=== PATIENT | female | born 2000 | race Caucasian/White ===

== ENCOUNTER 2019-12-05 15:00 | Emergency (ER) | payer SELFPAY ==
[2019-12-05 15:18] VITALS: BP 122/85; PULSE 78; RESP 18; TEMP 36.8; O2SAT 98; BMI 32.5
--- NOTE | 2019-12-05 15:49 | ED_ITS ---
HPI - General: Chief complaint: OB/Uterine Contractions Stated complaint: bleeding and preg Time Seen by Provider: 12/05/19 15:29 History of Present Illness: HPI Narrative: 19-year-old female presents emergency room complaining of vaginal bleeding. She is presumed to be a G3, P2 SAB at 0 based on her recent home test states her last normal menstrual period was October 2016 she states that yesterday and the day prior she had positive test but now is having some small amount of vaginal bleeding. Based on her stated LMP she would be 3 weeks and 3 days gestation today. She denies any dysuria urgency or frequency she is not passed any tissue. MD Complaint: vaginal bleeding Onset (ago): day(s) (1) Pain Consistency: intermittent Severity: mild Quality: Cramping Relieving factors: none Exacerbating factors: none Vaginal discharge: none Vaginal bleeding: light Date of Last Menstrual Period: 11/11/19 Hx Last Menstrual Period: Normal per patient Patient : Yes Expected Date of Delivery: 08/17/20 Number of Weeks : 3 weeks 3 days OB History - Previous Pregnancies: no complications care: none Associated symptoms: Deny abdominal pain, dysuria, malaise, nausea or vomiting Review of Systems Const: Denies: fever(s), chills, body aches, change in appetite, fatigue or malaise ENMT: Denies: throat pain, ear or mastoid pain, nasal discharge or nasal co ngestion Card: Denies: chest pain, edema, dyspnea on exertion or orthopnea Resp: Denies: dyspnea, productive cough or non-productive cough GI: Denies: abdominal pain, nausea, vomiting, hematemesis, coffee ground emesis, diarrhea, constipation, bloating, hematochezia or melena : Denies: flank pain, difficulty voiding, dysuria, urinary frequency or urinary urgency Skin/Breast: Denies: rash or pruritus PFSH ED PFSH: Medical History No significant past medical history Surgical History No history of previous surgery Social History Smoking and tobacco status: never smoked Female Reproductive History: Date of last menstrual period: 11/11/19 Physical Exam Const: COMMON NORMALS: no acute distress GENERAL APPEARANCE: cooperative and comfortable ORIENTATION/CONSCIOUSNESS: Yes awake, Yes oriented to person, Yes oriented to place and Yes oriented to time Neck/C-Spine: COMMON NORMALS: no JVD Resp: COMMON NORMALS: normal respiratory effort, No retractions, No use of accessory muscles and clear to auscultation bilaterally AUSCULTATION: clear to auscultation bilaterally Cardio: COMMON NORMALS: no JVD, regular rate, regular rhythm and No murmurs present (Cardio) RATE: regular rate RHYTHM: regular rhythm GI: COMMON NORMALS: Soft to palpation and No hepatosplenomegaly present AUSCULTATION: Yes normoactive bowel sounds PALPATION: Yes Soft to palpation, No Tenderness to palpation present (GI), No Guarding due to palpation present (GI) and Yes No hepatosplenomegaly present Extremity: COMMON NORMALS: normal to inspection, capillary refill normal, no clubbing, cyanosis or edema, no calf tenderness and no pedal edema Neuro: SENSORIUM/ORIENTATION: Yes oriented to person, Yes oriented to place and Yes oriented to time Skin: COMMON NORMALS: no rashes or lesions noted GENERAL SKIN EXAM: no rashes or lesions noted Procedures Perimortem Number of Weeks : 3 weeks 3 days Course Vital Signs: Vital signs: Vital Signs Temperature 98.3 F 12/05/19 15:18 Pulse Rate 78 12/05/19 15:18 Respiratory Rate 18 12/05/19 15:18 Blood Pressure 122/85 12/05/19 15:18 Pulse Oximetry 98 12/05/19 15:18 MDM - OB/Uterine Contractions MDM Narrative: Medical decision making narrative: Patient refused blood draws because she was afraid of the needle we tried to discourage her discussed with her that we cannot adequately evaluate her without a blood draw she did not want to do that she eventually decided to leave A she is welcome to return at any time. If she starts having heavy bleeding she does run the risk of having further complications she understands this. Discharge Plan Discharge Patient Disposition: Left Against Medical Advice Prescriptions: No Action No Known Home Medications RF: 0 Discharge Date/Time: 12/05/19 17:00 Coding Level of Care Code ED [employer] for Chg Fwd Exam Detailed
== END 2019-12-05 17:00 | disposition left against medical advice (07) ==
PROVIDERS: Emergency Provider Family Medicine
DX: N93.9 Abnormal uterine and vaginal bleeding, unspecified (principal); Z53.21 Procedure and treatment not carried out due to patient leaving prior to being seen by health care provider
CPT/HCPCS: 12345; 99281

== ENCOUNTER 2022-08-10 15:18 | Outpatient (CLI) | payer MEDICAID, SELFPAY ==
--- NOTE | 2022-08-10 15:30 | US_ITS ---
WS: [id number] RIGHT 3D TOMOSYNTHESIS DIGITAL MAMMOGRAPHY WITH CAD CLINICAL INFORMATION: PALPABLE LUMP RIGHT TECHNIQUE: 3 views of the right breast were obtained. FINDINGS: Scattered fibroglandular densities of the right breast. Palpable marker upper outer RIGHT breast demo nstrates normal underlying parenchymal tissue. Normal fatty tissue in the area of palpable concern. U ltrasound described below. ULTRASOUND BREAST RIGHT TECHNIQUE: Ultrasound right breast focused area of concern. CLINICAL INFORMATION: PALPABLE LUMP RIGHT FINDINGS: Ultrasound RIGHT breast 10:00 position 5 cm from the nipple patient directed. Suggestion of a Hypoech oic ovoid elongated lesion in the area of palpable concern measuring 1.2 x 1.7 x 0.7 CM. This may rep resent a benign lipoma, incidental fibroadenolipoma, or normal asymmetric parenchyma tissue. No abnor malities noted on the mammogram in the area of palpable concern. Normal fatty tissue deep to the palp able marker. Findings are probably benign and recommend 6 month follow-up ultrasound to confirm stab ility. US/US breast RT limited* [id number] IMPRESSION: BI-RADS: 3-Probably Benign FOLLOW UP: 6 Month Follow-up Recommend 6 month follow-up RIGHT breast ultrasound to confirm stability.
--- NOTE | 2022-08-10 15:51 | MM_ITS ---
WS: [id number] RIGHT 3D TOMOSYNTHESIS DIGITAL MAMMOGRAPHY WITH CAD CLINICAL INFORMATION: PALPABLE LUMP RIGHT TECHNIQUE: 3 views of the right breast were obtained. FINDINGS: Scattered fibroglandular densities of the right breast. Palpable marker upper outer RIGHT breast demo nstrates normal underlying parenchymal tissue. Normal fatty tissue in the area of palpable concern. U ltrasound described below. ULTRASOUND BREAST RIGHT TECHNIQUE: Ultrasound right breast focused area of concern. CLINICAL INFORMATION: PALPABLE LUMP RIGHT FINDINGS: Ultrasound RIGHT breast 10:00 position 5 cm from the nipple patient directed. Suggestion of a Hypoech oic ovoid elongated lesion in the area of palpable concern measuring 1.2 x 1.7 x 0.7 CM. This may rep resent a benign lipoma, incidental fibroadenolipoma, or normal asymmetric parenchyma tissue. No abnor malities noted on the mammogram in the area of palpable concern. Normal fatty tissue deep to the palp able marker. Findings are probably benign and recommend 6 month follow-up ultrasound to confirm stab ility. MM/[place] [id number] IMPRESSION: BI-RADS: 3-Probably Benign FOLLOW UP: 6 Month Follow-up Recommend 6 month follow-up RIGHT breast ultrasound to confirm stability.
== END 2022-08-10 15:19 | disposition home or self-care (01) ==
PROVIDERS: PCP Family Medicine; Visit Provider Family Medicine
DX: N63.11 Unspecified lump in the right breast, upper outer quadrant (principal)
CPT/HCPCS: 76642; 77061; G0279

== ENCOUNTER 2023-05-02 19:44 | Outpatient (CLI) | payer MEDICAID, SELFPAY ==
[2023-05-02 19:49] VITALS: BP 129/78; PULSE 87
[2023-05-02 20:09] VITALS: BP 118/71; PULSE 85
[2023-05-02 20:24] VITALS: BP 113/66; PULSE 86
[2023-05-02 20:29] VITALS: RESP 15
[2023-05-02 20:39] VITALS: BP 110/65; PULSE 86
[2023-05-02 20:54] VITALS: BP 110/64; PULSE 88
[2023-05-02 21:20] LABS: Amphetamines Screen Urine Negative (Negative); Barbiturates Screen Urine Negative (Negative); Benzodiazepines Screen Urine Negative (Negative); Cocaine Screen Urine Negative (Negative); Opiate Screen Urine Negative (Negative); PCP Screen Urine Negative (Negative); THC Screen Urine Negative (Negative)
== END 2023-05-02 21:05 | disposition home or self-care (01) ==
LOC: OPOB 19:45 → OBGYN 19:48
PROVIDERS: PCP Family Medicine; Visit Provider Obstetrics & Gynecology
DX: O36.8190 Decreased fetal movements, unspecified trimester, not applicable or unspecified (principal); Z3A.00 Weeks of gestation of pregnancy not specified
CPT/HCPCS: 59025; 80306; 87081; 99211

== ENCOUNTER 2023-05-08 15:50 | Outpatient (CLI) | payer MEDICAID, SELFPAY ==
[2023-05-08 15:50] VITALS: BMI 35.9
[2023-05-08 16:00] VITALS: TEMP 35.9
[2023-05-08 16:01] VITALS: BP 117/77; PULSE 110
[2023-05-08 16:16] VITALS: RESP 15; TEMP 36.6; TEMP 36.7
== END 2023-05-08 16:50 | disposition home or self-care (01) ==
LOC: OPOB 15:55 → OBGYN 15:56
PROVIDERS: PCP Family Medicine; Visit Provider Obstetrics & Gynecology
DX: O48.0 Post-term pregnancy (principal); Z3A.00 Weeks of gestation of pregnancy not specified
CPT/HCPCS: 59025

== ENCOUNTER 2023-05-12 03:26 | Inpatient (IN) | payer MEDICAID, SELFPAY ==
[2023-05-12] VITALS (105 sets, daily range): BP systolic 96–152; BP diastolic 51–94; PULSE 58–172; RESP 16; TEMP 35.8–37.4; O2SAT 93–100; BMI 36.2
[2023-05-12] MEDS: dextrose 5%-lactated ringers 1,000 ML 125 ML IV (04:18)
[2023-05-12] MEDS: ampicillin 2,000 MG in sodium chloride 0.9% (plus) 50 ML 100 MG IV (04:19)
[2023-05-12 04:22] LABS: Basophils % 0.3 %; Eosinophils # 0.1 10^3/uL (0.0-0.8); Eosinophils % 0.7 %; Hematocrit 35.8 % (36-47); Lymphocytes # 2.2 10^3/uL (0.8-4.8); Lymphocytes % 18.2 %; Mean Corpuscular HGB Conc 32.1 g/dL (30-55); Mean Corpuscular Hemoglobin 24.8 pg (27-33); Mean Corpuscular Volume 77.3 fl (85-98); Mean Platelet Volume 12.9 fL (7.4-10.4); Monocytes # 0.8 10^3/uL (0.2-0.9); Monocytes % 6.6 %; Neutrophils # 8.93 10^3/uL (1.8-7.7); Neutrophils % 73.6 %; Nucleated Red Blood Cells % 0 %; Platelet Count 175 10^3/cmm (157-399); Red Blood Count 4.63 10^6/uL (3.85-5.65); Red Cell Distribution Width 14.3 % (12.1-15.1); White Blood Count 12.14 10^3/uL (3.29-11.43)
[2023-05-12 05:04] LABS: Hepatitis B Surface Antigen Non-Reactive (Nonreactive)
[2023-05-12 05:08] LABS: Rapid Plasma Reagin Syphilis Nonreactive (Nonreactive)
[2023-05-12] MEDS: ampicillin 1,000 MG in sodium chloride 0.9% (plus) 50 ML 100 MG IV ×2 (08:04→13:21)
[2023-05-12] MEDS: lactated ringers 1,000 ML 999 ML IV (09:38)
--- NOTE | 2023-05-12 10:06 | PM.OPHPUD ---
Labor & Delivery H&P Update Date of Procedure: May 12, 2023 Date H&P Performed: 05/07/23 H&P update information: I have reviewed H&P completed within last 30 days, I have examined patient prior to procedure and Changes to prior documentation as noted here (PROM, cervix 4 cm) Admission Diagnosis:
[2023-05-12] MEDS: ondansetron 2 mg/ML SDV 2 mL 4 MG IVP (10:48)
[2023-05-12] MEDS: ROPivacaine syringe 100 MG/50 ML SYRINGE 10 MG EPIDURAL ×2 (10:48→14:15)
--- NOTE | 2023-05-12 10:59 | ANES.PREANE2 ---
Pre-Anesthetic Assessment Height/Weight: Height 1.63 m Weight 95.708 kg Pulse Resp BP Pulse Ox O2 Del Method 118 H 16 140/90 100 Room Air 05/12/23 10:55 05/12/23 04:27 05/12/23 10:54 05/12/23 10:55 05/12/23 04:27 Preop Diagnosis: IUP labor epidural Familial anesthetic complications: none Was Beta Farrah taken within 24 hours: N/A Was Clonidine taken within 24 hours: N/A Social No alcohol and No tobacco (second hand) Exam alert and oriented x 3 Airway Submandibular: within normal limits Cervical ROM: within normal limits Mallampati: Class II Dentition: full History/ROS No significant complaints GI Gastroesophageal Reflux Disease Anesthetic Plan ASA status: 2 Anesthesia: Anesthesia Evaluation and Regional (specify below) (labor epidural) Medications/Allergies Home Medications Medication Instructions Recorded Confirmed Last Taken Type No Known Home Medications 05/07/23 05/12/23 Unknown History Allergies Allergy/AdvReac Type Severity Reaction Status Date / Time No Known Allergies Allergy Verified 05/12/23 04:29 Current Medications Generic Name Dose Route Start Last Admin Trade Name Freq PRN Reason Stop Dose Admin Lactated Ringer's 1,000 mls @ 999 mls/hr 05/12/23 03:17 05/12/23 09:38 Lactated Ringers IV 999 mls/hr .Q1H1M PRN Administration Per L&D Rescitation Protocol Dextrose/Lactated Ringer's 1,000 mls @ 125 mls/hr 05/12/23 03:17 05/12/23 04:18 Dextrose 5%-Lactated Ringers IV 125 mls/hr .Q8H PRN Administration labor Ampicillin Sodium 1,000 mg/ 50 mls @ 100 mls/hr 05/12/23 07:30 05/12/23 08:04 Sodium Chloride IV 100 mls/hr Q4H ANGEL Administration Protocol Ropivacaine 100 mg in 50 mls @ 10 mls/hr 05/12/23 09:45 05/12/23 10:48 Naropin Syringe EPIDURAL 10 mls/hr .Q5H ANGEL Administration Ondansetron HCl 4 mg 05/12/23 03:17 05/12/23 10:48 Ondansetron 2 Mg/Ml Sdv 2 Ml IVP 4 mg Q4H PRN Administration NAUSEA AND VOMITING PFSH Anesthesia Medical History (Updated 02/06/20 @ 00:00 by AUGUSTINA Jones) No significant past medical history Surgical History No history of previous surgery Social History Smoking and tobacco/nicotine status: never used tobacco/nicotine Female Reproductive History : 4 Data Anesthesia 05/12/23 04:03 Short CBC 05/12/23 Range/Units 04:03 WBC 12.14 H (3.29-11.43) 10^3/uL Hgb 11.50 (11.27-16.99) g/dL Hct 35.8 L (36-47) % MCV 77.3 L (85-98) fl Plt Count 175 (157-399) 10^3/cmm Neut % (Auto) 73.6 % Neut # (Auto) 8.93 H (1.8-7.7) 10^3/uL Blood Bank 05/12/23 04:03 Blood Type A Positive Rho(D) Type Rh positive Antibody Screen Negative Cardiac Studies: No Data to Display Anesthesia Procedures Epidural Time Out Performed: Yes Consents Signed: Procedure Consent Consent: from patient, risks and benefits reviewed and patient agrees to proceed Lumbar Level: L3-L4 Epidural position: sitting Epidural procedure: sterile prep of area, 1% lidocaine to numb the area, 18 g needle, negative for paresthesia passed, test dose given, 1.5% xylocaine 1:200k epi, placed PCEA, no systemic response, sterile dressing applied, L.U.D. no apparent complications and 0.2% Ropiavacaine @ mls/hr (10) Additional Comments: NISHANT at 6, taped at 13 at skin. negative blood/CSF upon aspiration.
--- NOTE | 2023-05-12 14:36 | PM.MISC ---
Miscellaneous Note Purpose of Documentation: Epidural Bolus Note: Pt. complain of right side hot spot , bolused 100mcg of fentanyl and 4mls of 0.2 % rop.
--- NOTE | 2023-05-12 16:45 | P.PCNOB_ITS ---
Delivery Note: Date of delivery: May 12, 2023 Pre-delivery diagnoses: Term Poor care Premature rupture of membrane Procedure: Spontaneous vaginal delivery Delivering Physician: Cory Banda MD Estimated blood loss (mL): 300 Post Delivery Diagnoses: Premature rupture of membranes: Qualifiers: PROM onset of labor timing: onset of labor within 24 hours of rupture PROM gestational age: full term Qualified Code(s): O42.02 - Full-term premature rupture of membranes, onset of labor within 24 hours of rupture Delivery: The patient was noted to be complete and pushing, so was placed in the dorsal lithotomy position, prepped and draped in the usual sterile fashion for a vaginal delivery. Pt. Noted to have epidural anesthesia. At 1638 the patient delivered a viable term male infant weighing 3395 g with scores of 8 and 9 at one and five minutes, respectively. The vertex was delivered spontaneo usly over intact perineum. The patient was asked to push and the head delivered spontaneously in the YFN position, over an intact perineum. A nuchal cord was checked and none noted. The anterior shoulder delivered easily and the posterior shoulder followed. The remainder of the was easily delivered and the oropharynx and nasopharynx was bulb suctioned. Terminal meconium noted. The infant was noted to have spontaneous cry and spontaneous movement of all four extremities. The cord was clamped x 2 and cut and noted to have 2 arteries and one vein. The infant was passed to the mother's abdomen where nursing personnel were in attendance. Cord blood sample was then obtained. The placenta delivered intact spontaneously and the uterus was explored. 20 units of Pitocin was placed in the IV bag to firm the uterus. Examination of the cervix and vaginal vault did not reveal any lacerations. A vaginal pack was then placed. Examination of the perineum showed no lacerations. The vaginal pack was then removed. The patient tolerated this procedure well, and recovered in L&D with her infant in their LDR room. All sponge and needle counts were correct. Post-Delivery Status: Good and stable History History History 4 Term 2 0 Miscarriages/Ectopic 1 Living Children 2 A&P Assessment and plan (1) Term delivered: (2) Premature rupture of membranes: Qualifiers: PROM onset of labor timing: onset of labor within 24 hours of rupture PROM gestational age: full term Qualified Code(s): O42.02 - Full-term premature rupture of membranes, onset of labor within 24 hours of rupture (3) Poor patient attendance of care: Plan observation Coding Level of Care Code Acute Code for Chg Fwd Diagnoses Term delivered O80 Full-term premature rupture of membranes with onset of labor within 24 hours of rupture O42.02 PROM onset of labor timing: onset of labor within 24 hours of rupture PROM gestational age: full term Poor patient attendance of care O09.30
[2023-05-12] MEDS: ibuprofen 800 mg tablet PO (20:40)
[2023-05-12] MEDS: docusate sodium 100 mg Capsule PO (20:40)
[2023-05-13] MEDS: HYDROcodone-acetaminophen 5-325 mg Tablet PO (01:49)
[2023-05-13 01:50] VITALS: BP 122/81; PULSE 81; RESP 18; TEMP 36.9; O2SAT 98
[2023-05-13 04:00] VITALS: BP 113/77; PULSE 59; RESP 16; TEMP 36.6; TEMP 36.7; O2SAT 98
[2023-05-13 05:22] LABS: Hematocrit 35.2 % (36-47); Mean Corpuscular HGB Conc 31.8 g/dL (30-55); Mean Corpuscular Hemoglobin 25.3 pg (27-33); Mean Corpuscular Volume 79.5 fl (85-98); Mean Platelet Volume 13.1 fL (7.4-10.4); Platelet Count 156 10^3/cmm (157-399); Red Blood Count 4.43 10^6/uL (3.85-5.65); Red Cell Distribution Width 14.6 % (12.1-15.1); White Blood Count 18.26 10^3/uL (3.29-11.43)
--- NOTE | 2023-05-13 08:05 | ANE.PACU2 ---
Inpatient post-anesthesia follow up: Airway intact: Yes Vital signs: Temperature 99.3 F Pulse Rate 87 Respiratory Rate 17 Blood Pressure 128/87 Pulse Oximetry 98 Oxygen Delivery Me thod Room Air Oxygen Flow Rate Fraction of Inspir ed Oxygen Hydration adequate: Yes Nausea and vomiting: No Pain level: 1 Mental status: Baseline
[2023-05-13] MEDS: prenatal vitamin Capsule 1 CAP PO (09:03)
[2023-05-13] MEDS: ibuprofen 800 mg tablet PO ×2 (09:03→15:18)
[2023-05-13] MEDS: docusate sodium 100 mg Capsule PO (09:03)
[2023-05-13 09:06] VITALS: BP 128/85; PULSE 64; RESP 16; TEMP 36.8; O2SAT 100
[2023-05-13 15:21] VITALS: BP 130/85; PULSE 85; RESP 16; TEMP 37; O2SAT 100
--- NOTE | 2023-05-13 17:57 | PM.OBGYDC ---
Discharge Providers CONFERENCE RESERVATIONIST Date of Admission: 05/12/23 03:26 Date of Discharge: 05/13/23 Attending Provider at Admission: Cory Banda MD Attending Provider at Discharge: Cory Banda MD Primary Care Provider: Mc Ram MD Diagnoses at Discharge Discharge Diagnosis (1) Term delivered: Status: Acute (2) Premature rupture of membranes: Status: Acute (3) Poor patient attendance of care: Status: Acute Reason for Visit Reason for Visit: possible rom Hospital Course Hospital Course Ms. Alanis is a 22 year old patient with LMP unkown ALEC 05/02/2023 by US, placing her at 41-3/7 weeks, came to labor and delivery with premature rupture membrane. She had virtually no care with only 1 visit. GBS culture was positive. Labor was augmented with oxytocin she progressed to have a spontaneous vaginal delivery without complication. observation uneventful. Tolerating diet well. Ambulating without difficulty. She is afebrile hemodynamically stable day 1. Information Peripartum Data: Infant Delivery Method: Vaginal Physical Exam Narrative: GA; alert and oriented x 3 HEENT: normal Breasts: engorged Nipples - skin intact Lungs; clear to auscultation Heart: regular rhythm, no murmurs. Abd: Appropriately tender. BS+. Uterine fundus below umbilicus. No Fundal Tenderness. Perineum: normal lochia. Extremities: no edema, no cyanosis, no tenderness. Urinary Catheter Management: Ro: Cath Placed During This Visit: yes, but has since been removed by the nurse Reason for Continuing Indwelling Catheter: Decision to DC Catheter Urinary Catheter Date of Insertion: 05/12/23 Urinary Catheter Time of Insertion: 13:06 Date Urinary Catheter Removed: 05/12/23 Time Urinary Catheter Discontinued: 16:20 History History History 4 Term 2 0 Miscarriages/Ectopic 1 Living Children 2 Discharge Data Studies Completed and Pending Pending at discharge Category Date Time Status Chlamydia/Gonorrh RNA,TMA URO Stat Lab 05/12/23 02:47 Received HIV 1&2 Antigen & Antibody Stat Lab 05/12/23 04:03 Received Laboratory Results WBC 18.26 10^3/uL (3.29-11.43) H 05/13/23 05:15 RBC 4.43 10^6/uL (3.85-5.65) 05/13/23 05:15 Hgb 11.20 g/dL (11.27-16.99) L 05/13/23 05:15 Hct 35.2 % (36-47) L 05/13/23 05:15 MCV 79.5 fl (85-98) L 05/13/23 05:15 MCH 25.3 pg (27-33) L 05/13/23 05:15 MCHC 31.8 g/dL (30-55) 05/13/23 05:15 RDW 14.6 % (12.1-15.1) 05/13/23 05:15 Plt Count 156 10^3/cmm (157-399) L 05/13/23 05:15 MPV 13.1 fL (7.4-10.4) H 05/13/23 05:15 Neut % (Auto) 73.6 % 05/12/23 04:03 Lymph % (Auto) 18.2 % 05/12/23 04:03 [place] % (Auto) 6.6 % 05/12/23 04:03 Eos % (Auto) 0.7 % 05/12/23 04:03 Baso % (Auto) 0.3 % 05/12/23 04:03 Neut # (Auto) 8.93 10^3/uL (1.8-7.7) H 05/12/23 04:03 Lymph # (Auto) 2.2 10^3/uL (0.8-4.8) 05/12/23 04:03 [place] # (Auto) 0.8 10^3/uL (0.2-0.9) 05/12/23 04:03 Eos # (Auto) 0.1 10^3/uL (0.0-0.8) 05/12/23 04:03 Baso # (Auto) 0.0 10^3/uL (0.0-0.1) 05/12/23 04:03 Nucleated RBC % (auto) 0 % 05/12/23 04:03 Nucleated RBCs # 0.0 /100WBC 05/12/23 04:03 RPR Nonreactive (Nonreactive) 05/12/23 04:03 Hep Bs Antigen Non-reactive (Nonreactive) 05/12/23 04:03 Rubella IgG Antibody 74.0 IU/mL (0.0-10.0) H 05/12/23 04:03 Blood Type A Positive 05/12/23 04:03 Rho(D) Type Rh positive 05/12/23 04:03 Antibody Screen Negative 05/12/23 04:03 Vitals Last Vital Signs Temp 98.6 F 05/13/23 15:21 Pulse 85 05/13/23 15:21 Resp 16 05/13/23 15:21 BP 130/85 05/13/23 15:21 Pulse Ox 100 05/13/23 15:21 O2 Del Method Room Air 05/13/23 15:21 Results Labs OB ([facility]): Blood Type A Positive 05/12/23 Antibody Screen Negative 05/12/23 Hct 35.2 % (36-47) L 05/13/23 Hgb 11.20 g/dL (11.27-16.99) L 05/13/23 Rho(D) Type Rh positive 05/12/23 Plt Count 156 10^3/cmm (157-399) L 05/13/23 Hep Bs Antigen Non-reactive (Nonreactive) 05/12/23 Rubella IgG Antibody 74.0 IU/mL (0.0-10.0) H 05/12/23 RPR Nonreactive (Nonreactive) 05/12/23 HIV 1&2 Ab & HIV 1 Ag Pending 05/12/23 C.trachomatis RNA (TMA) Pending 05/12/23 N.gonorrhoeae RNA (TMA) Pending 05/12/23 Chlamydia/GC Comment Pending 05/12/23 HCG, Qual Negative (Negative) 01/29/20 Urine Opiates Screen Negative ng/mL (Negative) 05/02/23 Ur Barbiturates Screen Negative ng/mL (Negative) 05/02/23 Ur Phencyclidine Scrn Negative ng/mL (Negative) 05/02/23 Ur Amphetamines Screen Negative ng/mL (Negative) 05/02/23 U Benzodiazepines Scrn Negative ng/mL (Negative) 05/02/23 Urine Cocaine Screen Negative ng/mL (Negative) 05/02/23 U Marijuana (THC) Screen Negative ng/mL (Negative) 05/02/23 Discharge Plan Discharge Patient Disposition: Home Condition: Stable Prescriptions: New ibuprofen 800 mg tablet 800 mg PO TID PRN (Reason: pain) Qty: 60 0RF acetaminophen 325 mg capsule 325 mg PO Q4H PRN (Reason: fever or pain) Qty: 60 0RF Discharge Orders: Discharge Order (Routine); Ordered 05/13/23 Ordered By: Cory Banda Discharge Diet: Usual diet Discharge Activity: Limit activity as instructed Patient Instructions: Depression (DC), Bleeding (DC), Preeclampsia and Eclampsia After Delivery (GEN), Hemorrhage (DC), OB Discharge Report, OB Food/Drug Interaction Guide, Opioid Safety, OB Home Care, OB Vaginal Deliveries - [facility] Activity Restrictions/Additional Instructions: 1. Please call [facility] on next working day to make your appointment in 6 weeks. 2. Please stay home until you come back to the clinic on first post-hospatilization check up. 3. Please follow instructions on your medications CAREFULLY. 4. If you have abdominal incision, do not cover it unless dressing is necessary because of drainage. OK to shower, but avoid bath. Leave steri-strips until they fall off. If they are still on one week after surgery, you may remove them. 5. If you had vaginal surgery or vaginal repair, Dr. Banda may instruct you to take SITZ bath. 6. Yellow, blood tinged odorous vaginal discharge is usually normal after hysterectomy or vaginal surgeries. 7. No SEXUAL INTERCOURSE, tampons, or douches until you are completely released from the post-operative care. 8. Avoid constipation by eating right and maybe using some Metamucil or Milk of Magnesia. 9. All prescription refills are given during the working hours. Please do no wait till it runs out. Call the clinic at [phone] before your medication runs out. The clinic will get in touch with your doctor to prescribe medications if necessary. 10. Please remain within 40 mile radius from our hospital because emergencies do happen now and then during the post-operative period. 11. If you have stairs at home, take one step at a time slowly and minimize the number of trips. It helps to stay in one floor for the next few days. No lifting except what you can lift by one hand until you are released from the post-operative care. 12. Driving is discouraged until you are well healed. It may be 3-4 weeks before you feel strong enough to drive. You should be able to turn and look through the rear window without pain and you should be able to push the brake pedal very hard without pain before you drive. No fast rules, but SAFETY should be your primary concern. DO NOT drive if you are on sedating medications such as narcotics. 13. Call the clinic (during working hours) to make urgent appointment or go to the Emergency room, if any of the following occurs: i. Vaginal bleeding becomes heavy, more than a period. ii. Incision becomes red and sore, or drains pus. iii. Your TEMPERATURE is over 100.4F or you have chill. iv. IV site becomes red and swollen (a little ``knot?? is usually OK) v. Persistent nausea and vomiting vi. Persistent constipation or diarrhea vii. Rash or allergic reaction to medications. Discharge Attestations CONFERENCE RESERVATIONIST Time Spent in Discharge Care*: greater than 30 min Coding Level of Care Code Acute Code for Chg Fwd Diagnoses Term delivered O80 Premature rupture of membranes O42.90 Poor patient attendance of care O09.30
[2023-05-13 18:30] VITALS: BP 128/87; PULSE 87; RESP 17; TEMP 37.4; O2SAT 98
[2023-05-13 18:40] VITALS: BP 128/87; PULSE 87; RESP 17; TEMP 37.4; O2SAT 98
[2023-05-13 23:20] LABS: Chlamydia Trachomatis RNA TMA NOT DETECTED (NOT DETECTED); Neisseria Gonorrhoeae RNA, TMA NOT DETECTED (NOT DETECTED)
[2023-05-23 10:32] LABS: HIV 1 & 2 Antibody Non-Reactive (Non-Reactiv); HIV 1 & 2 Antigen Non-Reactive (Non-Reactiv)
== END 2023-05-13 18:40 | disposition home or self-care (01) | DRG 807 ==
LOC: OPOB 03:32 → OBGYN 03:32
PROVIDERS: Admitting Provider Obstetrics & Gynecology; PCP Family Medicine; Visit Provider Obstetrics & Gynecology
DX: O48.0 Post-term pregnancy (principal); Z37.0 Single live birth; Z3A.41 41 weeks gestation of pregnancy; O42.02 Full-term premature rupture of membranes, onset of labor within 24 hours of rupture; O77.0 Labor and delivery complicated by meconium in amniotic fluid; O99.824 Streptococcus B carrier state complicating childbirth
CPT/HCPCS: 36415; 51702; 59025; 59409; 83986; 85025; 85027; 86592; 86762; 86850; 86900; 87340; 87491; 87591; 87806; 96374; 99211; J0290; J2405; J2795; J3010; J7120; J7121